=== PATIENT | female | born 1960 | race Caucasian/White ===

== ENCOUNTER → 2020-03-30 | Outpatient (CLI) | payer BC | END | disposition home or self-care (01) | LOC: LABPAT 09:34 | PROVIDERS: ATTEND Obstetrics & Gynecology | DX: Z01.818 Encounter for other preprocedural examination (principal); U07.1 COVID-19 ==

== ENCOUNTER 2020-04-03 06:00 | Inpatient (IN) | payer BC ==
--- NOTE | 2020-04-02 18:54 | P.HPOB ---
History of Present Illness H&P Date: 04/02/20 Chief Complaint: Uterine prolapse with cystocele & rectocele This is a 59 y.o. female, 2, para 2, who presents for total vaginal hysterectomy with anterior and posterior vaginal repair due to grade 3 cystocele & rectocele, and grade 2 uterine prolapse. She also has urinary incontinence, but has been evaluated by urology and they do not recommend a sling. She complains of pressure and dysparunia along with some urinary incontinence. She also feels some urinary retention and splinting to stool. Pelvic US showed uterus 6.5 x 2.9 x 3.4 cm, with atrophic endometrial stripe. Left ovary appeared normal. Right ovary was not well-visualized. OB Hx: . History of 2 vaginal deliveries. 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 Social Hx: Works at [employer]. Review of Systems Constitutional: Reports night sweats, Denies chills, Denies fever Eyes: denies blurred vision, denies pain Ears, nose, mouth and throat: Denies headache, Denies sore throat Cardiovascular: Denies chest pain, Denies shortness of breath Respiratory: Denies cough Gastrointestinal: Reports constipation (sometimes has to push on rectocele in order to go) Genitourinary: Reports prolapse symptoms, Reports stress incontinence, Reports urge incontinence Menstruation: Reports postmenopausal Musculoskeletal: Reports myalgias Integumentary: Denies pruritus, Denies rash Neurological: Denies numbness, Denies weakness Psychiatric: Denies anxiety, Denies depression Endocrine: Reports flushing Past Medical History Past Medical History: Hearing Disorder / Deafness, Hyperlipidemia Additional Past Medical History / Comment(s): Allergies. Hx migraines. Hx mononucleosis. Cystocele, rectocele History of Any Multi-Drug Resistant Organisms: None Reported Past Surgical History: Uterine Ablation Additional Past Surgical History / Comment(s): Mole removal. D&C. Uterine ablation 2005. Busy teeth. Colonoscopy. Past Anesthesia/Blood Transfusion Reactions: Motion Sickness Past Psychological History: No Psychological Hx Reported Smoking Status: Never smoker Past Alcohol Use History: Occasional Past Drug Use History: None Reported - Past Family History Mother Family Medical History: Deep Vein Thrombosis (DVT), Pulmonary Embolus Medications and Allergies Home Medications Medication Instructions Recorded Confirmed Type Ezetimibe/Simvastatin [Vytorin 1 each PO HS 03/30/20 03/30/20 History 10-10 mg] Ibuprofen [Motrin Ib] 600 - 800 mg PO Q8H PRN 03/30/20 03/30/20 History Loratadine [Claritin] 10 mg PO HS 03/30/20 03/30/20 History Multivit with Calcium,Iron,Min 1 each PO DAILY 03/30/20 03/30/20 History [Women's Multivitamin] Allergies Allergy/AdvReac Type Severity Reaction Status Date / Time Penicillins Allergy fever Verified 04/03/20 06:15 Exam Osteopathic Statement: *. No significant issues noted on an osteopathic structural exam other than those noted in the History and Physical/Consult. HEENT: within normal limits Heart: regular rate and rhythm Lungs: clear to auscultation bilaterally Abdomen: soft, non-tender Pelvic: uterus anteverted with grade 2 prolapse, grade 3 cystocele and rectocele. No adnexal masses were palpated Extremities: Neg. Martina's Assessment and Plan (1) Cystocele and rectocele with incomplete uterovaginal prolapse Current Visit: No Status: Acute Code(s): N81.2 - INCOMPLETE UTEROVAGINAL PROLAPSE SNOMED Code(s): 335524811 Plan: Proceed with total vaginal hysterectomy with anterior and posterior vaginal colporrhaphy. I have discussed the risks, benefits, and alternative therapies for the above- mentioned procedure and for both sedation/anesthesia as well as necessary blood products administration, if indicated, as they pertain to this patient. The pat iesheldon has indicated her understanding and acceptance of the risks and procedures discussed.
[~2020-04-03 06:00] MED LIST: DEXAMETHASONE SOD PHOSPHATE 10 MG/ML 1 ML VIAL IV ONE; HYDROmorphone 0.5 MG/0.5 ML SYRINGE IVP PRN; LACTATED RINGERS 1,000 ML IV SCH; LIDOCAINE 1% (10MG/ML) FOR IV START INTRADERMA PRN; MIDAZOLAM 2 MG/2 ML VIAL IV PRN; ONDANSETRON 4 MG/2 ML VIAL IVP ONE
[2020-04-03] MEDS ORDERED: SCOPOLAMINE 1.5MG/72HR PATCH TRANSDERM ONE (06:35)
[2020-04-03] MEDS ORDERED: SUCCINYLCHOLINE CHLORIDE 100 MG/5 ML SYR IV ONE (07:27)
[2020-04-03] MEDS ORDERED: MIDAZOLAM 2 MG/2 ML VIAL ONE (07:27)
[2020-04-03] MEDS ORDERED: fentaNYL (PF) 50 MCG/ML 2 ML AMP ONE (07:27)
[2020-04-03] MEDS ORDERED: MORPHINE SULFATE (PF) 0.3 MG/0.3 ML SYR ONE (07:27)
[2020-04-03] MEDS ORDERED: GLYCOPYRROLATE 0.2 MG/ML 2 ML VIAL ONE (07:27)
[2020-04-03] MEDS ORDERED: NEOSTIGMINE 1 MG/ML 10 ML VIAL ONE (07:27)
[2020-04-03] MEDS ORDERED: LIDOCAINE 1% INJ 10MG/ML (20 ML MDV) ONE (07:27)
[2020-04-03] MEDS ORDERED: ROCURONIUM BROMIDE 10 MG/ML 5 ML VIAL IV ONE (07:27)
[2020-04-03] MEDS ORDERED: KETOROLAC 30 MG/ML 1 ML VIAL ONE (07:27)
[2020-04-03] MEDS ORDERED: PROPOFOL 10 MG/ML 20 ML VIAL IV ONE (07:27)
[2020-04-03] MEDS ORDERED: EPINEPHrine 1 MG/ML 1 ML AMP IV ONE (07:56)
[2020-04-03] MEDS ORDERED: BACITRACIN 500 UNIT/GM OINT 28.4 GM TUBE TOPICAL ONE (07:56)
[2020-04-03] MEDS ORDERED: LACTATED RINGERS 1,000 ML IV ONE ×3 (08:03→10:58)
[2020-04-03] MEDS ORDERED: MORPHINE SULFATE 2 MG/ML SYRINGE IVP PRN (08:07)
[2020-04-03] MEDS ORDERED: NALOXONE 0.4 MG/ML 1 ML VIAL IV PRN (08:07)
--- NOTE | 2020-04-03 09:03 | P.OP ---
Date of Procedure: 04/03/20 Preoperative Diagnosis: Uterine prolapse with cystocele and rectocele Postoperative Diagnosis: Same Procedure(s) Performed: Total vaginal hysterectomy with anterior and posterior vaginal colporrhaphy Anesthesia: GETA, spinal (Duramorph) Surgeon: Maya Palmer Assembler Hydraulic Backhoe #1: Elzbieta Singh Estimated Blood Loss (ml): 100 Pathology: other (Uterus with cervix, vaginal mucosa) Condition: stable Disposition: floor Indications for Procedure: This is a 59 y.o. female, 2, para 2, who presents for total vaginal hysterectomy with anterior and posterior vaginal repair due to grade 3 cystocele & rectocele, and grade 2 uterine prolapse. She also has urinary incontinence, but has been evaluated by urology and they do not recommend a sling. She complains of pressure and dysparunia along with some urinary incontinence. She also feels some urinary retention and splinting to stool. Pelvic US showed uterus 6.5 x 2.9 x 3.4 cm, with atrophic endometrial stripe. Left ovary appeared normal. Right ovary was not well-visualized. Operative Findings: Grade 2 uterine prolapse is noted. Grade 3 cystocele and rectocele are noted. Vaginal atrophy is noted. Neither ovary is visualized. Description of Procedure: The patient is taken the operating room where she is placed in the dorsal lithotomy position. She is prepped and draped in the normal sterile fashion. Next a weighted speculum was placed in the patient's vagina and a right angle retractor was used to visualize the cervix. The anterior lip of the cervix is grasped with a single-tooth tenaculum. Next the cervix was circumferentially injected with one amp of epinephrine to 150 mL of normal saline. Next the cervix was circumscribed with a scalpel. The vaginal mucosa was pushed away from the cervix with a sponge. Next the uterosacral ligaments are clamped on either side with a Elina clamp, cut with Sosa scissors, and then sutured with 0 Vicryl suture in a Elina transfixion stitch and then held on either side with a straight hemostat. Next the posterior peritoneal reflection was identified and entered sharply with Sosa scissors. The edges of the vaginal mucosa was then tagged with 0 Vicryl suture and held with a curved hemostat for identification. Next a longbilled weighted speculum was placed through the posterior peritoneal reflection. Next the cardinal ligaments were clamped on either side with Elina clamps, cut with Sosa scissors, and then sutured with 0 Vicryl suture in Elina transfixion stitches and cut. Next the vesicouterine peritoneum reflection is identified and entered sharply with Metzenbaum scissors. A right angle bladder retractor is then used to retract the bladder. The uterine arteries are clamped on either side with Elina clamps, cut with Sosa scissors, and then sutured with 0 Vicryl suture in Elina transfixion stitches. The round ligament is also clamped on either side with a Elina clamp, cut with Sosa scissors, and sutured with 0 Vicryl suture in Elina transfixion stitches. Next the uterine ovarian ligament and tube were clamped on either side with a Elina clamp, cut with Sosa scissors, and then sutured with 0 Vicryl suture in a [id number] stitch, flashed, and then free tied with another suture of 0 Vicryl suture. These pedicles were held with a straight Werner for identification. The uterus is removed from the field. Excellent hemostasis is noted. Next the peritoneum is closed with 0 Vicryl suture in a pursestring fashion incorporating all the held ligaments. Again neither ovary was visualized prior to closing the vaginal cuff area. Next the uterine ovarian ligaments are tied together in the middle and cut. Next attention was turned to the cystocele repair. The edges of the vaginal mucosa are held with 2 Allis clamps. Next injection of the same epinephrine solution is injected underneath the mucosa upwards towards the urethra. Metzenbaum scissors were used to dissect underneath the vaginal mucosa and cut along the way up to just below the urethra. Sharp and blunt dissection are used to dissect the bladder away from the vaginal mucosa. Once the bladder is freed, the cystocele is reduced with 0 Vicryl suture in [id number] sti tches on either side of the cystocele. Next the edges of the vaginal mucosa are trimmed with Metzenbaum scissors. Next the vaginal mucosa is sutured with 0 Vicryl suture in a running locked fashion incorporating the vaginal cuff. The uterosacral ligaments were also tied together in the midline prior to completely closing the vaginal cuff. Excellent hemostasis is noted. The Al catheter is inserted and clear urine is noted. Next 2 Allis clamps are used to grasp the introitus at the 4 and 8 o'clock position. Injection of the same epinephrine solution was injected underneath the vaginal mucosa upwards towards the vaginal cuff. Next a triangle her piece of tissue is removed with the scalpel between the 2 Allis clamps on the perineum. Next Metzenbaum scissors were used to dissect underneath the vaginal mucosa upwards towards the vaginal cuff cutting along the way. The edges of the vaginal mucosa were held with Allis clamps. The rectocele was dissected away from the vaginal mucosa with blunt and sharp dissection. Next the rectocele/enterocele was reduced using 0 Vicryl suture in interrupted [id number] stitches on either side of the rectocele. Next the vaginal mucosa was trimmed with Metzenbaum scissors. Next the vaginal mucosa was sutured with 0 Vicryl suture in a running locked fashion up to the introitus and then brought underneath the skin and whipstitched along the subcutaneous tissue in a running fashion up to the apex of the cut. Then it was brought up to the skin and closed in a subcuticular fashion up to the introitus and tied. Good hemostasis was noted. Next the vagina is packed with one-inch iodoform gauze with bacitracin ointment. All sponge and needle counts are correct and the patient is then taken to recovery room in stable condition.
[2020-04-03] MEDS ORDERED: ONDANSETRON 4 MG/2 ML VIAL IVP ONE (10:40)
[2020-04-03] MEDS ORDERED: ONDANSETRON 4 MG/2 ML VIAL IVP PRN (11:27)
[2020-04-03] MEDS ORDERED: METOCLOPRAMIDE 5 MG/ML 2 ML VIAL IVP PRN (11:27)
[2020-04-03] MEDS ORDERED: ZOLPIDEM 5 MG TAB PO PRN (11:27)
[2020-04-03] MEDS ORDERED: HYDROcodone/APAP 5-325MG 1 EACH TAB PO PRN (11:27)
[2020-04-03] MEDS: SENNOSIDES-DOCUSATE SODIUM 1 EACH TAB PO SCH ×2 (13:37→21:19)
[2020-04-03] MEDS: diphenhydrAMINE 50 MG/ML 1 ML VIAL IVP PRN ×2 (15:26→21:18)
[2020-04-03] MEDS: KETOROLAC 30 MG/ML 1 ML VIAL IVP PRN ×2 (15:27→21:19)
[2020-04-03] MEDS: LACTATED RINGERS 1,000 ML IV SCH ×2 (15:32→23:58)
[2020-04-03] MEDS: LORATADINE 10 MG TAB PO SCH (21:19)
[2020-04-03] MEDS: EZETIMIBE 10 MG TAB PO SCH (21:19)
[2020-04-03] MEDS: ATORVASTATIN 10 MG TAB PO SCH (21:19)
[2020-04-04] MEDS: KETOROLAC 30 MG/ML 1 ML VIAL IVP PRN ×2 (06:01→12:25)
[2020-04-04 06:15] LABS: Basophils % (A) 0 %; Eosinophils % (A) 1 %; HCT 34.5 % (34.0-46.0); Lymphocytes # (A) 1.6 k/uL (1.0-4.8); Lymphocytes % (A) 20 %; MCH 31.2 pg (25.0-35.0); MCHC 31.9 g/dL (31.0-37.0); MCV 97.6 fL (80.0-100.0); Mean Platelet Volume 7.8; Monocytes # (A) 0.4 k/uL (0-1.0); Monocytes % (A) 5 %; Neutrophils # (A) 5.9 k/uL (1.3-7.7); Neutrophils % (A) 74 %; Platelet Count 243 k/uL (150-450); RBC 3.53 m/uL (3.80-5.40); RDW 12.7 % (11.5-15.5)
[2020-04-04] MEDS ORDERED: ACETAMINOPHEN TAB 325 MG TAB PO PRN (07:42)
--- NOTE | 2020-04-04 07:43 | P.PN ---
Progress Note - Text Progress Note Date: 04/04/20 59 yo female s/p Vaginal Hysterectomy. POD#1. Patient received intrathecal Dura morph. Patient was seen today, sitting up in bed no complaints, pain VAS score 0/10, no headache, no itching, no nausea and vomiting. Assessment and plan: Doing well in general no complications from anesthesia
[2020-04-04] MEDS: SENNOSIDES-DOCUSATE SODIUM 1 EACH TAB PO SCH ×4 (08:10→20:49)
[2020-04-04] MEDS ORDERED: diphenhydrAMINE 25 MG CAP PO PRN (08:50)
--- NOTE | 2020-04-04 08:50 | P.PN ---
Subjective Progress Note Date: 04/04/20 Principal diagnosis: Status post total vaginal hysterectomy with anterior and posterior vaginal colporrhaphy postoperative day #1 Patient has been groggy. She has not ambulated yet. Her catheter and packing were removed this morning and she has not been up to the bathroom yet. She is complaining of some itchiness but no rash. Pain is fairly well controlled with Toradol. 1 her packing was removed, the nurse stated a small amount of serosanguineous discharge was noted on her pad. Objective - Vital Signs Vital signs: Vital Signs Temp 99.5 F 04/04/20 08:08 Pulse 80 04/04/20 08:08 Resp 18 04/04/20 08:08 BP 103/57 04/04/20 08:08 Pulse Ox 97 04/04/20 08:08 Intake & Output 04/03/20 04/04/20 04/04/20 18:59 06:59 18:59 Intake Total 1750 770 Output Total 600 950 Balance 1150 -180 Weight 83.9 kg Intake: IV 1750 Oral 770 Output: Urine 500 950 Uretheral (Al) 400 Estimated Blood Loss 100 Other: Voiding Method Indwelling Catheter Indwelling Catheter - Constitutional General appearance: Present: no acute distress - Gastrointestinal General gastrointestinal: Present: normal bowel sounds - Genitourinary Genitourinary Comment(s): Small amount of serosanguineous discharge noted on peripad - Labs CBC & Chem 7: 04/04/20 05:59 Labs: Abnormal Lab Results - Last 24 Hours (Table) 04/04/20 Range/Units 05:59 RBC 3.53 L (3.80-5.40) m/uL Hgb 11.0 L (11.4-16.0) gm/dL Assessment and Plan Assessment: Status post TVH A&P repair postoperative day #1 (1) Cystocele and rectocele with incomplete uterovaginal prolapse Current Visit: Yes Status: Acute Code(s): N81.2 - INCOMPLETE UTEROVAGINAL PROLAPSE SNOMED Code(s): 859902497 Plan: Continue with postoperative care today. Will switch to oral pain medications to day. Patient is encouraged to ambulate and may shower. Will order Benadryl for itching. Will work on bladder training today.
[2020-04-04] MEDS: diphenhydrAMINE 25 MG CAP PO PRN ×2 (09:08→20:41)
[2020-04-04] MEDS: IBUPROFEN 600 MG TAB PO PRN ×2 (12:34→18:10)
[2020-04-04] MEDS: EZETIMIBE 10 MG TAB PO SCH (20:41)
[2020-04-04] MEDS: ATORVASTATIN 10 MG TAB PO SCH (20:42)
[2020-04-04] MEDS: HYDROcodone/APAP 7.5-325MG 1 EACH TAB PO PRN (20:43)
[2020-04-04] MEDS: LORATADINE 10 MG TAB PO SCH (20:55)
[2020-04-05] MEDS ORDERED: HYDROcodone/APAP 7.5-325MG 1 EACH TAB ONE
[2020-04-05] MEDS ORDERED: IBUPROFEN 600 MG TAB PO ONE
[2020-04-05] MEDS: IBUPROFEN 600 MG TAB PO PRN ×2 (08:29→14:24)
[2020-04-05] MEDS: SENNOSIDES-DOCUSATE SODIUM 1 EACH TAB PO SCH (08:29)
[2020-04-05] MEDS: SIMETHICONE 80 MG CHEWABLE PO PRN ×2 (08:39→12:00)
--- NOTE | 2020-04-05 09:01 | P.DS ---
Providers Date of admission: 04/03/20 06:00 Expected date of discharge: 04/05/20 Attending physician: Maya Palmer Primary care physician: Aníbal Amaral Kut - Discharge Diagnosis(es) (1) Cystocele and rectocele with incomplete uterovaginal prolapse Current Visit: Yes Status: Acute Hospital Course: This is a 59-year-old female who underwent a total vaginal hysterectomy with anterior and posterior vaginal colporrhaphy on 04/03/2020. Postoperatively she has done fairly well. She is urinating without difficulty. She is passing flatus but no bowel movement yet. Her pain is fairly well controlled with ibuprofen and [place]. She still feels some pressure and bloating and is urinating frequently. She feels she can manage her symptoms just as well at home as in the hospital. She is tolerating regular diet and denies any nausea or vomiting. Vital signs are stable. Abdomen is soft with positive bowel sounds 4. Karlee-pad shows very scant serosanguineous discharge. Extremities show negative Homans. Impression is status post total vaginal hysterectomy with anterior and posterior vaginal colporrhaphy postoperative day #2. Plan is to discharge home today. Routine postoperative instructions are given. She is advised to follow up in the office in approximately 1 week for a postoperative check. She is advised to call the office if she has any further questions or concerns prior to her appointment time. She will be given prescriptions for [place] and ibuprofen. She denies taking any other narcotic pain medication. She has signed a opioid start talking form. She has been counseled regarding narcotic use. Procedures: Total vaginal hysterectomy with anterior and posterior vaginal colporrhaphy on 04/03/2020 Patient Condition at Discharge: Stable Plan - Discharge Summary Discharge Rx Participant: No New Discharge Prescriptions: New Ibuprofen [Motrin] 600 mg PO Q6HR PRN #60 tab PRN Reason: Mild Discomfort HYDROcodone/APAP 7.5-325MG [[place] 7.5-325] 1 each PO Q6H PRN #28 tab PRN Reason: Moderate To Severe Pain No Action Loratadine [Claritin] 10 mg PO HS Multivit with Calcium,Iron,Min [Women's Multivitamin] 1 each PO DAILY Ibuprofen [Motrin Ib] 600 - 800 mg PO Q8H PRN PRN Reason: Pain Ezetimibe/Simvastatin [Vytorin 10-10 mg] 1 each PO HS Discharge Medication List Ezetimibe/Simvastatin [Vytorin 10-10 mg] 1 each PO HS 03/30/20 [History] Ibuprofen [Motrin Ib] 600 - 800 mg PO Q8H PRN 03/30/20 [History] Loratadine [Claritin] 10 mg PO HS 03/30/20 [History] Multivit with Calcium,Iron,Min [Women's Multivitamin] 1 each PO DAILY 03/30/20 [History] HYDROcodone/APAP 7.5-325MG [[place] 7.5-325] 1 each PO Q6H PRN #28 tab 04/05/20 [Rx] Ibuprofen [Motrin] 600 mg PO Q6HR PRN #60 tab 04/05/20 [Rx] Follow up Appointment(s)/Referral(s): Maya Palmer DO [Doctor of Osteopathic Medicine] - 1 Week Activity/Diet/Wound Care/Special Instructions: Activity as tolerated. Diet as tolerated. May shower, but no tub baths. No intercourse for 6 weeks. No heavy lifting. Discharge Disposition: HOME SELF-CARE
[2020-04-05 09:06] VITALS: BP 138/74; PULSE 70; RESP 20; TEMP 97.9
[2020-04-05] MEDS: HYDROcodone/APAP 7.5-325MG 1 EACH TAB PO PRN (12:00)
== END 2020-04-05 15:19 | disposition home or self-care (01) | DRG 743 ==
LOC: 2ORMAIN 06:00 → 6PED 09:06
PROVIDERS: ADMIT Obstetrics & Gynecology; ATTEND Obstetrics & Gynecology
PROC: 0UT97ZZ Resection of Uterus, Via Natural or Artificial Opening (ICD-10-PCS; principal; 2020-04-03 07:30)
PROC: 0JQC0ZZ Repair Pelvic Region Subcutaneous Tissue and Fascia, Open Approach (ICD-10-PCS; principal; 2020-04-03 07:30)
DX: N81.2 Incomplete uterovaginal prolapse (principal); E78.5 Hyperlipidemia, unspecified; H91.90 Unspecified hearing loss, unspecified ear; N95.2 Postmenopausal atrophic vaginitis; N39.46 Mixed incontinence; K59.00 Constipation, unspecified; Z88.0 Allergy status to penicillin; Z83.2 Family history of diseases of the blood and blood-forming organs and certain disorders involving the immune mechanism; Z79.899 Other long term (current) drug therapy
CPT/HCPCS: 36415; 85025; 86850; 86900; 86901; 88302; 88305